=== PATIENT | female | born 1945 | race Caucasian/White ===

== ENCOUNTER 2021-07-27 13:02 | Emergency (ER) | payer MEDICARE ==
[~2021-07-27] VITALS: Ht 157.5 cm; Wt 57.2 kg
[2021-07-27 13:43] LABS: HEMOGLOBIN 14.8 gm/dl (12.3-15.3); RED BLOOD COUNT 4.87 M/UL (4.00-5.10); WHITE BLOOD COUNT 9.8 K/UL (4.5-11.0)
[2021-07-27] MEDS ORDERED: ASPIRIN EC81 MG PO (17:26)
[2021-07-27] MEDS ORDERED: VITAMIN D325 MCG PO (17:26)
[2021-07-27] MEDS ORDERED: ATORVASTATIN CA10 MG PO (17:26)
[2021-07-27] MEDS ORDERED: LEVOTHYROXINE88 MCG PO (17:27)
[2021-07-27] MEDS ORDERED: IBU800 MG PO (17:27)
[2021-07-27] MEDS ORDERED: OMEPRAZOLE40 MG PO (17:28)
[2021-07-27] MEDS ORDERED: ULTRAM50 MG PO (17:28)
[2021-07-27] MEDS ORDERED: LOSARTAN-HCTZ1 EACH PO (17:28)
[2021-07-27] MEDS ORDERED: SPIRIVA RESPIMAT4 GM INH (17:29)
[2021-07-28 15:03] LABS: ACINETOBACTER BAUMANNII Not Detected (Negative); CANDIDA ALBICANS Not Detected (Negative); CANDIDA KRUSEI Not Detected (Negative); CANDIDA TROPICALIS Not Detected (Negative); ENTEROCOCCUS Not Detected (Negative); ESCHERICHIA COLI Not Detected (Negative); HAEMOPHILUS INFLUENZAE Not Detected (Negative); KLEBSIELLA OXYTOCA Not Detected (Negative); KLEBSIELLA PNEUMONIAE Not Detected (Negative); KPC-CARBAPENEM-RESISTANCE GENE Not Detected (Negative); PROTEUS Not Detected (Negative); PSEUDOMONAS AERUGINOSA Not Detected (Negative); SERRATIA MARCESANS Not Detected (Negative); STAPHYLOCOCCUS AUREUS Not Detected (Negative); STREP AGALACTIAE (GROUP B) Not Detected (Negative); STREP PYOGENES (GROUP A) Not Detected (Negative); STREPTOCOCCUS Not Detected (Negative); vanA/B (VANCOMYCIN RESIST GENE Not Detected (Negative)
[2021-07-28 16:23] LABS: STAPHYLOCOCCUS DETECTED (Negative); mecA (METHICILLIN RESIST GENE DETECTED (Negative)
== END 2021-07-28 16:32 | disposition expired ==
LOC: ER1 13:02 → CDU 15:23 → ER1 15:23 → CDU 07-28 18:12 → ER1 07-28 18:12
PROVIDERS: Internal Medicine; Student in an Organized Health Care Education/Training Program
DX: J96.01 Acute respiratory failure with hypoxia (principal); N28.9 Disorder of kidney and ureter, unspecified; E88.9 Metabolic disorder, unspecified; Z20.822 Contact with and (suspected) exposure to COVID-19
CPT/HCPCS: 36600; 51702; 71045; 80053; 81001; 82803; 83605; 83735; 84100; 85025; 87040; 87077; 87086; 87150; 87186; 93005; 96374; 99285; G0378; J2270; U0002